=== PATIENT | female | born 1995 | race Caucasian/White ===

== ENCOUNTER 2018-04-20 10:45 | Emergency (ER) | payer OTHER ==
--- NOTE | 2018-04-20 11:55 | ER Document Report ---
ED General - General Chief Complaint: Suicidal Ideation Stated Complaint: POSSIBLE IVC Time Seen by Provider: 04/20/18 10:56 Mode of Arrival: Ambulatory Information source: Patient, PENDING SALE TO [facility] Records Notes: 22-year-old female with history of depression, mood disorder, anxiety presents with suicidal ideation from home.Patient states that she has been suffering for depression for a long period of time and has been undergoing counseling but recently experienced a breakup with her fianc that has caused her to be more depressed. She states that they were living together but he expressed that he was unhappy and canceled the wedding.She states that she has thought about jumping off of a bridge. She denies any previous attempts. TRAVEL OUTSIDE OF THE [place] IN LAST 30 DAYS: No - HPI Onset: Just prior to arrival Quality of pain: No pain Associated symptoms: None Exacerbated by: Denies Relieved by: Denies Similar symptoms previously: Yes Recently seen / treated by doctor: Yes Past Medical History - General Information source: Patient, PENDING S[facility] Records - Social History Smoking Status: Never Smoker Frequency of alcohol use: Rare Drug Abuse: None Lives with: Alone Family History: Reviewed & Not Pertinent Patient has suicidal ideation: Yes Patient has homicidal ideation: No Renal/ Medical History: Denies: Hx Peritoneal Dialysis Psychiatric Medical History: Reports: Hx Depression Review of Systems - Review of Systems Notes: REVIEW OF SYSTEMS: CONSTITUTIONAL : Denies fever, chills, or sweats. Denies recent illness. Denies weight loss, recent hospitalizations. EENT: Denies visual changes, eye pain. Denies sore throat, oral lesions, difficulty swallowing. CARDIOVASCULAR: Denies chest pain. Denies palpitations. Denies lower extremity edema. RESPIRATORY: Denies cough. Denies shortness of breath, wheezing. GASTROINTESTINAL: Denies abdominal pain or distention. Denies nausea, vomiting , or diarrhea. Denies blood in vomitus, stools, or per rectum. Denies black, tarry stools. Denies constipation. GENITOURINARY: Denies difficulty urinating, painful urination, frequency, blood in urine, or vaginal discharge. MUSCULOSKELETAL: Denies back or neck pain or stiffness. Denies joint pain or swelling. SKIN: Denies rash, lesions or sores. HEMATOLOGIC : Denies easy bruising or bleeding. LYMPHATIC: Denies swollen glands. NEUROLOGICAL: Denies confusion or altered mental status. Denies loss of consciousness. Denies dizziness or lightheadedness. Denies headache. Denies weakness or paralysis. Denies problems difficulty with ambulation, slurred speech. Denies sensory loss, numbness, or tingling. Denies seizures. PSYCHIATRIC: Denies homicidal ideation. Denies visual or auditory hallucinations. Physical Exam - Vital signs Vitals: Temp Pulse Resp BP Pulse Ox 98.6 F 99 16 134/79 H 97 04/20/18 10:56 04/20/18 10:56 04/20/18 10:56 04/20/18 10:56 04/20/18 10:56 Interpretation: Hypertensive. No: Febrile - Notes Notes: PHYSICAL EXAMINATION: GENERAL: Well-appearing, well-nourished and in no acute distress. HEAD: Atraumatic, normocephalic. EYES: Pupils equal round and reactive to light, extraocular movements intact, conjunctiva are normal. ENT: Nares patent, oropharynx clear without exudates. Moist mucous membranes. NECK: Normal range of motion, supple without lymphadenopathy LUNGS: Breath sounds clear to auscultation bilaterally and equal. No wheezes rales or rhonchi. HEART: Regular rate and rhythm without murmurs ABDOMEN: Soft, nontender, nondistended abdomen. No guarding, no rebound. No masses appreciated. Female : deferred Musculoskeletal: Normal range of motion, no pitting or edema. No cyanosis. NEUROLOGICAL: Cranial nerves grossly intact. Normal speech, normal gait. Normal sensory, motor exams PSYCH: SKIN: Warm, Dry, normal turgor, no rashes or lesions noted. Course - Re-evaluation Re-evalutation: Laboratory 04/20/18 04/20/18 04/20/18 11:30 11:30 11:30 WBC 6.0 RBC 5.55 H Hgb 11.1 L Hct 34.9 L MCV 63 L MCH 20.0 L MCHC 31.9 L RDW 15.8 H Plt Count 240 Total Counted 100 Seg Neutrophils % Not Reportable Seg Neuts % (Manual) 85 H Lymphocytes % Not Reportable Lymphocytes % (Manual) 11 L Monocytes % Not Reportable Monocytes % (Manual) 3 Eosinophils % Not Reportable Eosinophils % (Manual) 0 Basophils % Not Reportable Basophils % (Manual) 1 Absolute Neutrophils Not Reportable Abs Neuts (Manual) 5.1 Absolute Lymphocytes Not Reportable Abs Lymphs (Manual) 0.7 Absolute Monocytes Not Reportable Abs Monocytes (Manual) 0.2 Absolute Eosinophils Not Reportable Absolute Eos (Manual) 0.0 Absolute Basophils Not Reportable Abs Basophils (Manual) 0.1 Platelet Comment ADEQUATE Hypochromasia 1+ Poikilocytosis 1+ Anisocytosis 1+ Microcytosis 3+ Ovalocytes 1+ Rouleaux SLIGHT Schistocytes SLIGHT Sodium 141.1 Potassium 4.3 Chloride 105 Carbon Dioxide 24 Anion Gap 12 BUN 13 Creatinine 0.68 Est GFR ( Amer) > 60 Est GFR (Non-Af Amer) > 60 Glucose 80 Calcium 9.8 Total Bilirubin 1.5 H Direct Bilirubin 0.2 Neonat Total Bilirubin Not Reportable Neonat Direct Bilirubin Not Reportable Neonat Indirect Bili Not Reportable AST 16 ALT 13 Alkaline Phosphatase 53 Total Protein 7.6 Albumin 4.7 Serum HCG, Qual NEGATIVE Urine Color Urine Appearance Urine pH Ur Specific [place] Urine Protein Urine Glucose (UA) Urine Ketones Urine Blood Urine Nitrite Urine Bilirubin Urine Urobilinogen Ur Leukocyte Esterase Urine WBC (Auto) Urine RBC (Auto) Urine Bacteria (Auto) Squamous Epi Cells Auto Urine Mucus (Auto) Urine Ascorbic Acid Salicylates < 1.0 L Urine Opiates Screen Urine Methadone Screen Acetaminophen < 10 L Ur Barbiturates Screen Ur Phencyclidine Scrn Ur Amphetamines Screen U Benzodiazepines Scrn Urine Cocaine Screen U Marijuana (THC) Screen Serum Alcohol < 10 04/20/18 04/20/18 11:30 11:30 WBC RBC Hgb Hct MCV MCH MCHC RDW Plt Count Total Counted Seg Neutrophils % Seg Neuts % (Manual) Lymphocytes % Lymphocytes % (Manual) Monocytes % Monocytes % (Manual) Eosinophils % Eosinophils % (Manual) Basophils % Basophils % (Manual) Absolute Neutrophils Abs Neuts (Manual) Absolute Lymphocytes Abs Lymphs (Manual) Absolute Monocytes Abs Monocytes (Manual) Absolute Eosinophils Absolute Eos (Manual) Absolute Basophils Abs Basophils (Manual) Platelet Comment Hypochromasia Poikilocytosis Anisocytosis Microcytosis Ovalocytes Rouleaux Schistocytes Sodium Potassium Chloride Carbon Dioxide Anion Gap BUN Creatinine Est GFR ( Amer) Est GFR (Non-Af Amer) Glucose Calcium Total Bilirubin Direct Bilirubin Neonat Total Bilirubin Neonat Direct Bilirubin Neonat Indirect Bili AST ALT Alkaline Phosphatase Total Protein Albumin Serum HCG, Qual Urine Color LOCO Urine Appearance SLIGHTLY-CLOUDY Urine pH 5.0 Ur Specific [place] 1.025 Urine Protein 30 H Urine Glucose (UA) NEGATIVE Urine Ketones 20 H Urine Blood MODERATE H Urine Nitrite NEGATIVE Urine Bilirubin NEGATIVE Urine Urobilinogen 2.0 H Ur Leukocyte Esterase NEGATIVE Urine WBC (Auto) 2 Urine RBC (Auto) 6 Urine Bacteria (Auto) TRACE Squamous Epi Cells Auto 4 Urine Mucus (Auto) MANY Urine Ascorbic Acid NEGATIVE Salicylates Urine Opiates Screen NEGATIVE Urine Methadone Screen NEGATIVE Acetaminophen Ur Barbiturates Screen NEGATIVE Ur Phencyclidine Scrn NEGATIVE Ur Amphetamines Screen NEGATIVE U Benzodiazepines Scrn NEGATIVE Urine Cocaine Screen NEGATIVE U Marijuana (THC) Screen NEGATIVE Serum Alcohol 04/20/18 14:05 22-year-old female with a mood disorder presents with suicidal ideation with a plan to jump off a bridge. Patient states that she has been experiencing increased depression secondary to her fianc breaking up with her and moving out. She states that they were due to be in 3 weeks. She denies any prior attempts. She is not currently on any psychiatric medication. Patient has unremarkable laboratory findings. She has been evaluated by our psych team who thinks that the patient should be IVC and be held overnight. Awaiting medication recommendations. 04/20/18 14:15 - Vital Signs Vital signs: Temp Pulse Resp BP Pulse Ox 98.6 F 99 16 134/79 H 97 04/20/18 10:56 04/20/18 10:56 04/20/18 10:56 04/20/18 10:56 04/20/18 10:56 - Laboratory Result Diagrams: 04/20/18 11:30 04/20/18 11:30 Laboratory results interpreted by me: 04/20/18 04/20/18 04/20/18 11:30 11:30 11:30 RBC 5.55 H Hgb 11.1 L Hct 34.9 L MCV 63 L MCH 20.0 L MCHC 31.9 L RDW 15.8 H Seg Neuts % (Manual) 85 H Lymphocytes % (Manual) 11 L Total Bilirubin 1.5 H Urine Protein 30 H Urine Ketones 20 H Urine Blood MODERATE H Urine Urobilinogen 2.0 H Salicylates < 1.0 L Acetaminophen < 10 L Discharge - Discharge Clinical Impression: Suicidal ideation, Elevated blood pressure reading, Cyclothymic disorder Condition: Good Referrals: BERNADETTE SHARPE MD [COMMUNITY BASED STAFF] - Follow up as needed
[2018-04-20 12:06] LABS: HEMATOCRIT 34.9 % (36.0-47.0); HEMOGLOBIN 11.1 g/dL (12.0-15.5); MEAN CORPUSCULAR HGB CONC 31.9 g/dL (32.0-36.0); PLATELET COUNT 240 10^3/uL (150-450); RED BLOOD COUNT 5.55 10^6/uL (3.72-5.28); RED CELL DISTRIBUTION WIDTH 15.8 % (11.5-14.0)
[2018-04-20 12:15] LABS: APPEARANCE,URINE SLIGHTLY-CLOUDY; BILIRUBIN,URINE NEGATIVE (NEGATIVE); COLOR,URINE AMBER; GLUCOSE, URINE NEGATIVE (NEGATIVE); KETONES,URINE 20 mg/dL (NEGATIVE); LEUKOCYTE ESTERASE,URINE NEGATIVE (NEGATIVE); NITRITE,URINE NEGATIVE (NEGATIVE); PROTEIN,URINE 30 mg/dL (NEGATIVE); URINE SPECIFIC GRAVITY 1.025
[2018-04-20 12:16] LABS: ALANINE AMINOTRANSFERASE 13 U/L (9-52); ALBUMIN 4.7 g/dL (3.5-5.0); ALKALINE PHOSPHATASE 53 U/L (38-126); ANION GAP 12 (5-19); ASPARTATE AMINO TRANSFERASE 16 U/L (14-36); BILIRUBIN,DIRECT 0.2 mg/dL (0.0-0.4); BILIRUBIN,TOTAL 1.5 mg/dL (0.2-1.3); BLOOD UREA NITROGEN 13 mg/dL (7-20); CALCIUM 9.8 mg/dL (8.4-10.2); CARBON DIOXIDE 24 mmol/L (22-30); CHLORIDE 105 mmol/L (98-107); GLUCOSE 80 mg/dL (75-110); POTASSIUM 4.3 mmol/L (3.6-5.0); SODIUM 141.1 mmol/L (137-145); TOTAL PROTEIN 7.6 g/dL (6.3-8.2)
[2018-04-20 12:18] LABS: MEAN CORPUSCULAR VOLUME 63 fl (80-97)
[2018-04-20 12:23] LABS: ACETAMINOPHEN < 10 ug/mL (10-30); ALCOHOL < 10 mg/dL (NONE DETECTED); SALICYLATE < 1.0 mg/dL (2.0-20.0)
[2018-04-20 12:27] LABS: URINE AMPHETAMINES SCREEN NEGATIVE; URINE BARBITURATES SCREEN NEGATIVE; URINE BENZODIAZEPINES SCREEN NEGATIVE; URINE COCAINE SCREEN NEGATIVE; URINE MARIJUANA (THC) SCREEN NEGATIVE; URINE METHADONE SCREEN NEGATIVE; URINE PHENCYCLIDINE SCREEN NEGATIVE
[2018-04-20 12:30] LABS: ABSOLUTE LYMPHOCYTES# (MANUAL) 0.7 10^3/uL (0.5-4.7); ABSOLUTE MONOCYTES # (MANUAL) 0.2 10^3/uL (0.1-1.4); ABSOLUTE NEUTROPHILS# (MANUAL) 5.1 10^3/uL (1.7-8.2); ANISOCYTOSIS 1+; BASOPHILS % (MANUAL) 1 % (0-2); EOSINOPHILS % (MANUAL) 0 % (0-6); HYPOCHROMASIA 1+; LYMPHOCYTES % (MANUAL) 11 % (13-45); MONOCYTES % (MANUAL) 3 % (3-13); OVALOCYTES 1+; PLATELET COMMENT ADEQUATE; POIKILOCYTOSIS 1+; ROULEAUX SLIGHT; SCHISTOCYTES SLIGHT; SEGMENTED NEUTROPHILS % (MAN) 85 % (42-78); TOTAL CELLS COUNTED 100
--- NOTE | 2018-04-20 13:03 | EKG REPORT ---
SEVERITY:- BORDERLINE ECG - SINUS RHYTHM BORDERLINE T ABNORMALITIES, ANTERIOR LEADS : Confirmed by: Ward Coulter MD 20-Apr-2018 13:03:27
--- NOTE | 2018-04-20 14:22 | PSYCHOLOGICAL NOTE ---
Psych Note - Psych Note Date seen by psych provider: 04/20/18 Time seen by psych provider: 12:00 Psych Note: Reason for consult: suicide attempt to jump off bridge Consent for permissions: Patient's mother. patient to room 46 in ED via EMS with suicidal ideations with a plan. pt states that she had a bad break up with her fiance 2 days ago and was going to jump off a bridge. pt drove to the bridge and called the crisis hotline. pt states hx of depression and anxiety. Patient states that she was supposed to be getting in three weeks but instead she and fiance broke up 2 days ago. Patient states that she drove to the bridge off [address] at about 10am and sat there for about 30 minutes just "thinking". Patient states that at that time it became hard for her to breathe, so she decided to call the National Suicide Hotline from her car. She states that the crisis consumer sales representative dispatched the [employer] to the scene and they brought her to the hospital. Patient states that she has not talked to her fiance since the breakup. Patient denies suicide ideation. Patient states that she wants to live for 1.) There is no one that can take care of her cat 2.) She is in a play coming up soon 3.) She would not do that to her parents. Patient currently sees Sylvia Silveira LPC ([phone]) and has been seeing her for therapy since August 2017. This Clinician left a message for the therapist and patient's mother to collect collateral information. Patient states that her family is very supportive and will support her through the breakup. Patient denies being on any medication at this time except control. Patient is alert and oriented to person, place, time and circumstance. Patient' s mood is dysphoric with a tearful effect. Patient states that she did not mean to hurt her parents. Patient demonstrates an organized and linear thought process. Patient appears to be of average intellectual abilities. Eye contact is well maintained. Conversational speech is in normal tone and prosody. Attention and concentration are fair. Insight, judgment, impulse control are fair. Medication recommendations per [facility]'s contracted psychiatrist Dr. Blair CASEY are as follows: Diagnosis 301.13 (F34.0) Cyclothymic Disorder per patient report Impression/Plan: Patient is recommended for IVC. Patient drove to a bridge this morning and called the suicide hotline for help. Patient denies suicide ideation but cannot express why she wants to live. Patient's mood is dysphoric with a tearful affect. Patient's fiance broke off the wedding that was to be held on May [address] Felix was consulted on the care and management of this patient; attending physician in agreement with recommendations and disposition.
--- NOTE | 2018-04-21 09:17 | ER Document Report ---
Doctor's Note Notes: 04/21/18 09:17 As the rounding physician this AM, I assessed the patient's labs, vitals, and records. No concerning findings this morning. Patient denies any acute complaints. Patient is cleared for disposition by psychiatry 04/21/18 14:57 Patient evaluated by mental health team. Patient has outpatient follow-up with her own psychologist. She states that her mental health team advised and a holistic approach to her mood disorder. No home-going meds recommended.
[2018-04-21 11:21] VITALS: BP 108/72
[2018-04-22 14:22] LABS: PATH REVIEW PATHOLOGIST REVIEWED
== END 2018-04-21 11:13 | disposition home or self-care (01) ==
LOC: ER 10:45
DX: R03.0 Elevated blood-pressure reading, without diagnosis of hypertension (principal); F34.0 Cyclothymic disorder; R45.851 Suicidal ideations; F32.9 Major depressive disorder, single episode, unspecified; F41.9 Anxiety disorder, unspecified
CPT/HCPCS: 36415; 80053; 80307; 81001; 84703; 85025; 93005; 93010; 99285